=== PATIENT | male | born 1950 | race Caucasian/White ===

== ENCOUNTER 2017-08-28 18:50 | Observation (INO) | payer MEDICARE, OTHER ==
[~2017-08-28] VITALS: Ht 170.2 cm; Wt 82.0 kg
[~2017-08-28 18:50] MED LIST: AMLO1TAB46 PO; ASPI-1265 PO; ESOM40CA PO; EZET1TAB35 PO; LOP25T PO; MELO15TA13 PO; NORCO10T PO
[2017-08-28 19:13] LABS: BASOPHILS % (AUTO) 0.2 % (0-1); EOSINOPHILS # (AUTO) 0.1 X10'3 (0-0.9); EOSINOPHILS % (AUTO) 1.7 % (0-6); HEMATOCRIT 36.6 % (42.0-52.0); HEMOGLOBIN 12.4 g/dl (14.0-17.9); LYMPHOCYTES # (AUTO) 1.6 X10'3 (1.1-4.8); LYMPHOCYTES % (AUTO) 20.4 % (21-51); MEAN CORPUSCULAR HEMOGLOBIN 29.9 PG (27.0-31.0); MEAN CORPUSCULAR HGB CONC 33.9 % (33.0-36.5); MEAN CORPUSCULAR VOLUME 88.2 FL (78-98); MEAN PLATELET VOLUME 9.4 FL (7.4-10.4); MONOCYTES # (AUTO) 0.6 X10'3 (0-0.9); MONOCYTES % (AUTO) 7.6 % (2-12); NEUTROPHILS # (AUTO) 5.4 X10'3 (1.8-7.7); NEUTROPHILS % (AUTO) 70.1 % (42-75); PLATELET COUNT 126 X10'3 (140-440); RED BLOOD COUNT 4.15 X10'6 (4.70-6.10); RED CELL DISTRIBUTION WIDTH 15.9 % (11.5-14.5); WHITE BLOOD COUNT 7.7 X10'3 (4.5-11.0)
[2017-08-28 19:24] LABS: INR 0.9 INR; PARTIAL THROMBOPLASTIN TIME 23 SECONDS (22-32); PROTHROMBIN TIME 9.5 SECONDS (9.0-12.0)
[2017-08-28 19:29] LABS: ANION GAP 11 (8-16); BILIRUBIN,TOTAL 0.4 MG/DL (0.1-1.0); BLOOD UREA NITROGEN 19 MG/DL (7-18); BUN/CREATININE RATIO 24.7 (5.4-32.0); CALCIUM 7.8 MG/DL (8.5-10.1); CHLORIDE 109 MMOL/L (99-107); CREATININE 0.77 MG/DL (0.60-1.10); GLUCOSE 96 MG/DL (70-104); POTASSIUM 3.8 MMOL/L (3.5-5.1); SODIUM 142 MMOL/L (135-145); TOTAL CARBON DIOXIDE 21.9 MMOL/L (24-32); TOTAL PROTEIN 6.1 G/DL (6.4-8.2); eGFR > 90 ML/MIN
[2017-08-28 19:30] LABS: ALANINE AMINOTRANSFERASE 24 U/L (12-78); ALBUMIN 3.1 G/DL (3.4-5.0); ALKALINE PHOSPHATASE 86 IU/L (46-116); ASPARTATE AMINO TRANSFERASE 14 U/L (10-37)
[2017-08-28] MEDS ORDERED: morphine 4 MG/ML inj SYRINge IV ONE ×2 (20:10→23:00)
[2017-08-28 20:40] LABS: D-DIMER 0.31 MG/L FEU (0-0.50)
[2017-08-28] MEDS ORDERED: ondansetron/PF 4mg/2ml inj IV ONE (20:40)
[2017-08-28] MEDS ORDERED: normal saline 1000ML IV soln IVB ONE (23:00)
[2017-08-28] MEDS ORDERED: nitroGLYCERIN 1gm ointment UD TP ONE (23:00)
[2017-08-29] VITALS (10 sets, daily range): BP systolic 117–150; BP diastolic 58–84
[2017-08-29] MEDS ORDERED: normal saline 1000ML IV soln IVB ONE (00:10)
[2017-08-29] MEDS ORDERED: magnesium 2GM in 50ml NS 50 ML IV PRN (01:20)
[2017-08-29] MEDS ORDERED: magnesium 4gm in 100ml NS 100 ML IV PRN (01:20)
[2017-08-29] MEDS ORDERED: ondansetron/PF 4mg/2ml inj IV PRN (01:20)
[2017-08-29] MEDS ORDERED: potassium Cl 40MEQ/NS 500ml 500 ML IV PRN ×2 (01:20)
[2017-08-29] MEDS ORDERED: nitroGLYCERIN 0.4mg SUBLingual tab SL PRN (01:20)
[2017-08-29] MEDS ORDERED: magnesium hydroxide 30ml (MOM) UD suspension PO PRN (01:20)
[2017-08-29] MEDS ORDERED: acetaminophen 325mg tablet PO PRN ×2 (01:20)
[2017-08-29] MEDS ORDERED: metoprolol tartrate 1mg/ml inj IV PRN (01:20)
[2017-08-29] MEDS ORDERED: aminophylline 250mg/10ml inj. IV PRN (01:20)
[2017-08-29] MEDS ORDERED: regadenoson 0.4mg/5ml syringe IV ONE ×3 (01:20→10:45)
[2017-08-29] MEDS ORDERED: mag hydrox/Alum hydrox/simeth 30ml oral suspension PO PRN (01:20)
[2017-08-29] MEDS ORDERED: potassium Cl 20 mEq SR tablet PO PRN ×2 (01:20)
[2017-08-29] MEDS: HYDROcodone/acetaminophen 10/325mg tab PO SCH ×3 (01:56→13:45)
[2017-08-29] MEDS ORDERED: pantoprazole 40mg Tablet.DR PO SCH (07:30)
[2017-08-29] MEDS ORDERED: AMLODIPINE PO SCH (08:00)
[2017-08-29] MEDS ORDERED: amLODIPine 5mg tablet PO SCH (08:00)
[2017-08-29] MEDS ORDERED: VALSARTAN PO SCH (08:00)
[2017-08-29] MEDS ORDERED: ESOMEPRAZOLE MAG TRIHYDRATE 40 MG PO SCH (08:00)
[2017-08-29] MEDS ORDERED: enoxaparin 40mg/0.4ml syringe SQ SCH (08:00)
[2017-08-29] MEDS ORDERED: metoprolol tartrate 25mg tablet PO SCH (08:00)
[2017-08-29] MEDS ORDERED: K and/or MAG REPLACEMENT MC SCH (08:00)
[2017-08-29] MEDS ORDERED: aspirin 81mg tab.chew PO SCH (08:00)
[2017-08-29 08:40] LABS: BASOPHILS % (AUTO) 0.3 % (0-1); EOSINOPHILS % (AUTO) 0.7 % (0-6); HEMATOCRIT 35.4 % (42.0-52.0); HEMOGLOBIN 12.1 g/dl (14.0-17.9); LYMPHOCYTES # (AUTO) 1.5 X10'3 (1.1-4.8); LYMPHOCYTES % (AUTO) 22.5 % (21-51); MEAN CORPUSCULAR HEMOGLOBIN 30.1 PG (27.0-31.0); MEAN CORPUSCULAR HGB CONC 34.2 % (33.0-36.5); MEAN PLATELET VOLUME 9.9 FL (7.4-10.4); MONOCYTES # (AUTO) 0.5 X10'3 (0-0.9); MONOCYTES % (AUTO) 7.2 % (2-12); NEUTROPHILS # (AUTO) 4.8 X10'3 (1.8-7.7); NEUTROPHILS % (AUTO) 69.3 % (42-75); PLATELET COUNT 114 X10'3 (140-440); RED BLOOD COUNT 4.03 X10'6 (4.70-6.10); RED CELL DISTRIBUTION WIDTH 15.5 % (11.5-14.5); WHITE BLOOD COUNT 6.8 X10'3 (4.5-11.0)
[2017-08-29 08:42] LABS: ALANINE AMINOTRANSFERASE 26 U/L (12-78); ALBUMIN 2.9 G/DL (3.4-5.0); ALKALINE PHOSPHATASE 62 IU/L (46-116); ANION GAP 8 (8-16); ASPARTATE AMINO TRANSFERASE 14 U/L (10-37); BILIRUBIN,TOTAL 0.7 MG/DL (0.1-1.0); BLOOD UREA NITROGEN 15 MG/DL (7-18); BUN/CREATININE RATIO 18.8 (5.4-32.0); CALCIUM 8.1 MG/DL (8.5-10.1); CHLORIDE 107 MMOL/L (99-107); CHOL/HDL RATIO 1.8 (0.00-4.99); CHOLESTEROL 148 MG/DL (0-200); GLUCOSE 89 MG/DL (70-104); HDL CHOLESTEROL 84 MG/DL (35-60); LDL CHOLESTEROL 50 MG/DL (50-100); POTASSIUM 4.3 MMOL/L (3.5-5.1); SODIUM 141 MMOL/L (135-145); TOTAL CARBON DIOXIDE 26.3 MMOL/L (24-32); TOTAL PROTEIN 5.8 G/DL (6.4-8.2); TRIGLYCERIDES 31 MG/DL (20-135); eGFR > 90 ML/MIN
[2017-08-29] MEDS ORDERED: aminophylline inj. 0 ML IV ONE (10:36)
[2017-08-29] MEDS ORDERED: atorvastatin 20mg tablet PO SCH (21:00)
[2017-08-29] MEDS ORDERED: ezetimibe 10mg tablet PO SCH (21:00)
[2017-08-29] MEDS ORDERED: SIMVASTATIN PO SCH (21:00)
[2017-08-29] MEDS ORDERED: EZETIMIBE PO SCH (21:00)
== END 2017-08-29 16:15 | disposition home or self-care (01) ==
LOC: ER 18:50 → ED HOLD 08-29 01:17 → INTOOBSV 08-29 01:17 → ORTHO 4S 08-29 05:40
PROVIDERS: ADMIT Family Medicine; ATTEND Family Medicine
DX: I20.0 Unstable angina (principal); I10 Essential (primary) hypertension; E78.5 Hyperlipidemia, unspecified; Z87.891 Personal history of nicotine dependence; Z85.46 Personal history of malignant neoplasm of prostate; Z82.49 Family history of ischemic heart disease and other diseases of the circulatory system; Z80.42 Family history of malignant neoplasm of prostate; Z80.3 Family history of malignant neoplasm of breast; Z80.1 Family history of malignant neoplasm of trachea, bronchus and lung
CPT/HCPCS: 36415; 71045; 78452; 80053; 80061; 84484; 85025; 85379; 85610; 85730; 87070; 93017; 96361; 96374; 96375; 96376; 99285; A9500; G0378; J2270; J2405; J7030; J0280; J1650

== ENCOUNTER 2021-10-17 10:44 | Emergency (ER) | payer BC ==
[~2021-10-17] VITALS: Ht 167.6 cm; Wt 86.4 kg
[~2021-10-17 10:44] MED LIST changes: -MELO15TA13 PO
[2021-10-17 11:07] VITALS: BP 126/82
[2021-10-17] MEDS ORDERED: NIRM1TAB PO ×2 (12:48→14:43)
== END 2021-10-17 13:16 | disposition home or self-care (01) ==
LOC: ER 10:46
DX: U07.1 COVID-19 (principal); R09.89 Other specified symptoms and signs involving the circulatory and respiratory systems; R06.02 Shortness of breath; R07.89 Other chest pain; R05.9 Cough, unspecified; I25.10 Atherosclerotic heart disease of native coronary artery without angina pectoris; I10 Essential (primary) hypertension; Z85.9 Personal history of malignant neoplasm, unspecified; Z98.890 Other specified postprocedural states; Z72.89 Other problems related to lifestyle; Z79.82 Long term (current) use of aspirin; Z79.899 Other long term (current) drug therapy
CPT/HCPCS: 99283